=== PATIENT | male | born 1975 | race Caucasian/White ===

== ENCOUNTER 2016-04-11 10:39 | Emergency (ER) | payer MEDICAID ==
[2016-04-11] MEDS ORDERED: ONDANSETRON ODT 4 MG TAB ONE (12:54)
[2016-04-11] MEDS ORDERED: DILAUDID 1 MG/ML AMP ONE (12:55)
== END 2016-04-11 15:58 | disposition home or self-care (01) ==
LOC: ER 10:39
CPT/HCPCS: 72100; 72148; 96372